=== PATIENT | male | born 1940 | race Caucasian/White ===

== ENCOUNTER 2023-09-20 13:10 | Inpatient (IN) | payer OTHER ==
[~2023-09-20] VITALS: Ht 160 cm; Wt 71.7 kg
[2023-09-20 13:14] VITALS: BP_SYST 122; PULSE 73; RESP 18; TEMP 98.3; O2SAT 98
[2023-09-20] MEDS ORDERED: NACL 0.9% 1,000 ML IV ONE (13:15)
[2023-09-20 14:21] LABS: BASOPHILS % (AUTO) 0.3 % (0.0-2.0); EOSINOPHILS # (AUTO) 0.1 K/uL (0.0-0.4); EOSINOPHILS % (AUTO) 1.4 % (0.0-4.0); HEMATOCRIT 42.7 % (36-54); HEMOGLOBIN 13.6 g/dL (14.0-18.0); LYMPHOCYTES # (AUTO) 1.2 K/uL (1.0-5.5); LYMPHOCYTES % (AUTO) 15.7 % (20.5-51.5); MEAN CORPUSCULAR HEMOGLOBIN 25 pg (27-31); MEAN CORPUSCULAR HGB CONC 32 % (32-36); MEAN CORPUSCULAR VOLUME 80 fL (79.0-98.0); MONOCYTES # (AUTO) 0.5 K/uL (0.0-1.0); MONOCYTES % (AUTO) 6.1 % (1.7-9.3); NEUTROPHILS # (AUTO) 5.9 K/uL (1.8-7.7); NEUTROPHILS % (AUTO) 76.5 % (40.0-70.0); PLATELET COUNT (AUTO) 241 K/uL (130-430); RED BLOOD CELL COUNT(AUTO) 5.34 MIL/uL (4.2-6.2); RED CELL DISTRIBUTION WIDTH 14.4 % (9.0-15.0); WHITE BLOOD COUNT (AUTO) 7.7 K/uL (4.8-10.8)
[2023-09-20 14:32] LABS: ANION GAP 9 (5-15); CALCIUM 11.2 mg/dL (8.4-11.0); CARBON DIOXIDE 29 mmol/L (23-29); CHLORIDE 105 mmol/L (98-107); CREATININE 1.05 mg/dL (0.55-1.30); GLUCOSE 227 mg/dL (74-106); POTASSIUM 3.8 mmol/L (3.5-5.1); SODIUM SERUM 143 mmol/L (136-145); UREA NITROGEN, BLOOD 27 mg/dL (8-21)
[2023-09-20 14:37] LABS: ALANINE AMINOTRANSFERASE 20 U/L (12-78); ALBUMIN 3.6 g/dL (3.4-4.8); ASPARTATE AMINOTRANSFERASE 17 U/L (10-37); LIPASE 48 U/L (16-77); TOTAL BILIRUBIN 0.4 mg/dL (0.0-1.0); TOTAL PROTEIN, SERUM 7.9 g/dL (6.4-8.3)
[2023-09-20] MEDS ORDERED: ACET325T39 PO (18:37)
[2023-09-20] MEDS ORDERED: MULT-74 PO (18:37)
[2023-09-20] MEDS ORDERED: INSU100V53 SQ ×2 (18:37)
[2023-09-20] MEDS ORDERED: ATOR20TA64 PO (18:37)
[2023-09-20] MEDS ORDERED: CLON0.1T PO (18:37)
[2023-09-20] MEDS ORDERED: INSU100V (18:37)
[2023-09-20] MEDS ORDERED: ACET-2634 PO (18:37)
[2023-09-20] MEDS ORDERED: FINA5TAB11 PO (18:37)
[2023-09-20] MEDS ORDERED: ASPI-859 PO (18:37)
[2023-09-20] MEDS ORDERED: HYDR-3919 PO (18:37)
[2023-09-20] MEDS ORDERED: DEXT15DR23 BOTH EYES (18:37)
[2023-09-20] MEDS ORDERED: MOM PO (18:47)
[2023-09-20] MEDS ORDERED: NA P230E PR (18:47)
[2023-09-20] MEDS ORDERED: DULR10 PR (18:47)
[2023-09-20 19:01] LABS: BILIRUBIN,URINE NEGATIVE (NEGATIVE); COLOR,URINE YELLOW (YELLOW); GLUCOSE,URINE 1+ (NEGATIVE); KETONES,URINE NEGATIVE (NEGATIVE); LEUKOCYTE ESTERASE ,URINE 1+ (NEGATIVE); NITRITE, URINE NEGATIVE (NEGATIVE); PROTEIN URINE NEGATIVE (NEGATIVE); UROBILINOGEN,URINE 0.2 (0.2-1.0)
[2023-09-20 19:09] LABS: BLOOD, URINE TRACE (NEGATIVE); CLARITY/URINE HAZY (CLEAR)
[2023-09-20 19:10] LABS: BACTERIA,URINE MODERATE /HPF (None Seen); MUCUS,URINE None Seen /LPF (None Seen); RBC,URINE 0-3 /HPF (0-3); URINE AMORPHOUS PHOSPHATES 2+ /HPF (None Seen)
[2023-09-20] MEDS ORDERED: MORPHINE 4 MG INJ. 4 MG/ML VIAL IVP PRN (22:00)
[2023-09-20] MEDS ORDERED: NALOXONE HCL 0.4 MG/ML AMP (NARCAN) IVP PRN (22:00)
[2023-09-20] MEDS ORDERED: ONDANSETRON HCL 4 MG/2 ML VIAL IVP PRN (22:00)
[2023-09-20] MEDS ORDERED: GLUCOSE (DEXTROSE) ORAL GEL -Adults PO PRN (22:00)
[2023-09-20] MEDS ORDERED: LORazepam 2 MG/ML VIAL IVP PRN (22:00)
[2023-09-20] MEDS ORDERED: D5W 1,000 ML IV PRN (22:00)
[2023-09-20] MEDS ORDERED: DEXTROSE 50% JECT 50 ML DISP.SYRIN IVP PRN (22:00)
[2023-09-20 22:15] VITALS: O2SAT 94
[2023-09-20] MEDS: D5/0.45 NS 1,000 ML IV SCH (23:07)
[2023-09-20 23:21] VITALS: BP_SYST 157; PULSE 77; RESP 18; TEMP 97.6
[2023-09-21] MEDS: D5/0.45 NS 1,000 ML IV SCH ×3 (03:45→22:36)
[2023-09-21 05:43] LABS: ANION GAP 9 (5-15); CALCIUM 10.7 mg/dL (8.4-11.0); CARBON DIOXIDE 30 mmol/L (23-29); CHLORIDE 108 mmol/L (98-107); CREATININE 0.97 mg/dL (0.55-1.30); GLUCOSE 252 mg/dL (74-106); POTASSIUM 3.8 mmol/L (3.5-5.1); SODIUM SERUM 147 mmol/L (136-145); UREA NITROGEN, BLOOD 22 mg/dL (8-21)
[2023-09-21 05:48] LABS: BASOPHILS % (AUTO) 0.3 % (0.0-2.0); EOSINOPHILS # (AUTO) 0.1 K/uL (0.0-0.4); EOSINOPHILS % (AUTO) 1.2 % (0.0-4.0); HEMATOCRIT 41.2 % (36-54); HEMOGLOBIN 12.9 g/dL (14.0-18.0); LYMPHOCYTES # (AUTO) 1.1 K/uL (1.0-5.5); LYMPHOCYTES % (AUTO) 12.1 % (20.5-51.5); MEAN CORPUSCULAR HEMOGLOBIN 25 pg (27-31); MEAN CORPUSCULAR HGB CONC 31 % (32-36); MEAN CORPUSCULAR VOLUME 81 fL (79.0-98.0); MONOCYTES # (AUTO) 0.6 K/uL (0.0-1.0); MONOCYTES % (AUTO) 6.8 % (1.7-9.3); NEUTROPHILS # (AUTO) 6.9 K/uL (1.8-7.7); NEUTROPHILS % (AUTO) 79.6 % (40.0-70.0); PLATELET COUNT (AUTO) 225 K/uL (130-430); RED BLOOD CELL COUNT(AUTO) 5.11 MIL/uL (4.2-6.2); RED CELL DISTRIBUTION WIDTH 14.7 % (9.0-15.0); WHITE BLOOD COUNT (AUTO) 8.7 K/uL (4.8-10.8)
[2023-09-21 08:00] VITALS: O2SAT 98
[2023-09-21 09:11] LABS: INR 1.1 (0.80-1.20); PROTHROMBIN TIME 11.7 SECS (9.5-12.5)
[2023-09-21 11:31] VITALS: BP_SYST 157; PULSE 85; RESP 15; TEMP 97.1; O2SAT 96
[2023-09-21] MEDS: INSULIN REGULAR, HUMAN 100 UNITS/ML, 3 ML VIAL (humuLIN R) SUBCUT PRN ×2 (13:46→22:47)
[2023-09-21 15:32] VITALS: BP_SYST 151; PULSE 72; RESP 16; TEMP 98.5; O2SAT 100
[2023-09-21 16:00] VITALS: BP_SYST 158; PULSE 84; RESP 20; TEMP 97.7; O2SAT 98
[2023-09-21 20:00] VITALS: BP_SYST 144; PULSE 86; RESP 18; TEMP 97.9; O2SAT 95
[2023-09-21] MEDS: PEG 400/HYPROMELLOSE/GLYCERIN 15 ML DROPS BOTH EYES SCH (22:36)
[2023-09-22] VITALS (9 sets, daily range): BP systolic 133–152; PULSE 73–93; RESP 16; TEMP 97.2–98; O2SAT 96–99
[2023-09-22 06:31] LABS: BASOPHILS % (AUTO) 0.2 % (0.0-2.0); EOSINOPHILS # (AUTO) 0.1 K/uL (0.0-0.4); EOSINOPHILS % (AUTO) 1.5 % (0.0-4.0); HEMATOCRIT 39.8 % (36-54); HEMOGLOBIN 12.6 g/dL (14.0-18.0); LYMPHOCYTES # (AUTO) 1.1 K/uL (1.0-5.5); LYMPHOCYTES % (AUTO) 13.8 % (20.5-51.5); MEAN CORPUSCULAR HEMOGLOBIN 25 pg (27-31); MEAN CORPUSCULAR HGB CONC 32 % (32-36); MEAN CORPUSCULAR VOLUME 80 fL (79.0-98.0); MONOCYTES # (AUTO) 0.4 K/uL (0.0-1.0); MONOCYTES % (AUTO) 5.4 % (1.7-9.3); NEUTROPHILS # (AUTO) 6.3 K/uL (1.8-7.7); NEUTROPHILS % (AUTO) 79.1 % (40.0-70.0); PLATELET COUNT (AUTO) 206 K/uL (130-430); RED BLOOD CELL COUNT(AUTO) 4.97 MIL/uL (4.2-6.2); RED CELL DISTRIBUTION WIDTH 14.7 % (9.0-15.0); WHITE BLOOD COUNT (AUTO) 7.9 K/uL (4.8-10.8)
[2023-09-22] MEDS: INSULIN REGULAR, HUMAN 100 UNITS/ML, 3 ML VIAL (humuLIN R) SUBCUT PRN ×2 (06:52→12:01)
[2023-09-22 06:56] LABS: ANION GAP 11 (5-15); CALCIUM 10.5 mg/dL (8.4-11.0); CARBON DIOXIDE 28 mmol/L (23-29); CHLORIDE 104 mmol/L (98-107); CREATININE 0.87 mg/dL (0.55-1.30); GLUCOSE 168 mg/dL (74-106); PHOSPHORUS 2.6 mg/dL (2.7-4.5); POTASSIUM 3.7 mmol/L (3.5-5.1); SODIUM SERUM 143 mmol/L (136-145); UREA NITROGEN, BLOOD 15 mg/dL (8-21)
[2023-09-22 07:27] LABS: ALBUMIN 3.3 g/dL (3.4-4.8); BILIRUBIN,DIRECT 0.1 mg/dL (0.0-0.3); TOTAL BILIRUBIN 0.5 mg/dL (0.0-1.0); TOTAL PROTEIN, SERUM 7.3 g/dL (6.4-8.3)
[2023-09-22] MEDS: D5/0.45 NS 1,000 ML IV SCH ×2 (09:45→21:01)
[2023-09-22] MEDS ORDERED: NA PHOS 15 MM in NS 250 ML IV ONE (12:00)
[2023-09-22] MEDS: MORPHINE 2 MG/ML INJ. SYRINGE IVP PRN (14:13)
[2023-09-22] MEDS: LEVOFLOXACIN 250 MG/D5W 50 ML IV SCH (14:56)
[2023-09-22] MEDS: PEG 400/HYPROMELLOSE/GLYCERIN 15 ML DROPS BOTH EYES SCH (21:01)
[2023-09-23 00:20] VITALS: BP_SYST 151; PULSE 79; RESP 19; TEMP 98.1; O2SAT 98
[2023-09-23] MEDS: D5/0.45 NS 1,000 ML IV SCH ×2 (00:39→10:53)
[2023-09-23 05:44] LABS: BASOPHILS % (AUTO) 0.2 % (0.0-2.0); EOSINOPHILS # (AUTO) 0.1 K/uL (0.0-0.4); EOSINOPHILS % (AUTO) 1.7 % (0.0-4.0); HEMATOCRIT 38.4 % (36-54); HEMOGLOBIN 12.3 g/dL (14.0-18.0); LYMPHOCYTES # (AUTO) 1.1 K/uL (1.0-5.5); LYMPHOCYTES % (AUTO) 14.3 % (20.5-51.5); MEAN CORPUSCULAR HEMOGLOBIN 25 pg (27-31); MEAN CORPUSCULAR HGB CONC 32 % (32-36); MEAN CORPUSCULAR VOLUME 79 fL (79.0-98.0); MONOCYTES # (AUTO) 0.5 K/uL (0.0-1.0); NEUTROPHILS # (AUTO) 5.8 K/uL (1.8-7.7); NEUTROPHILS % (AUTO) 76.8 % (40.0-70.0); PLATELET COUNT (AUTO) 190 K/uL (130-430); RED BLOOD CELL COUNT(AUTO) 4.88 MIL/uL (4.2-6.2); RED CELL DISTRIBUTION WIDTH 14.3 % (9.0-15.0); WHITE BLOOD COUNT (AUTO) 7.5 K/uL (4.8-10.8)
[2023-09-23] MEDS: INSULIN REGULAR, HUMAN 100 UNITS/ML, 3 ML VIAL (humuLIN R) SUBCUT PRN ×2 (06:04→11:36)
[2023-09-23 06:05] LABS: ERYTHROCYTE SEDIMENTATION RATE 52 MM/HR (0-15)
[2023-09-23 06:30] LABS: ALANINE AMINOTRANSFERASE 17 U/L (12-78); ALBUMIN 3.1 g/dL (3.4-4.8); ANION GAP 10 (5-15); ASPARTATE AMINOTRANSFERASE 17 U/L (10-37); CALCIUM 10.1 mg/dL (8.4-11.0); CARBON DIOXIDE 27 mmol/L (23-29); CHLORIDE 101 mmol/L (98-107); CREATININE 0.95 mg/dL (0.55-1.30); GLUCOSE 207 mg/dL (74-106); POTASSIUM 3.4 mmol/L (3.5-5.1); SODIUM SERUM 138 mmol/L (136-145); TOTAL BILIRUBIN 0.5 mg/dL (0.0-1.0); TOTAL PROTEIN, SERUM 6.9 g/dL (6.4-8.3); UREA NITROGEN, BLOOD 12 mg/dL (8-21)
[2023-09-23] MEDS ORDERED: VANCOMYCIN HCL 1 GM/NS PREMIX 250 ML IV ONE (07:30)
[2023-09-23 08:00] VITALS: BP_SYST 141; PULSE 70; RESP 18; TEMP 96.8; O2SAT 99
[2023-09-23 11:28] VITALS: BP_SYST 149; PULSE 68; RESP 16; TEMP 98.1; O2SAT 93
[2023-09-23 11:30] VITALS: O2SAT 96
[2023-09-23] MEDS: LEVOFLOXACIN 250 MG/D5W 50 ML IV SCH (13:40)
[2023-09-23 15:24] VITALS: BP_SYST 152; PULSE 60; RESP 16; TEMP 98.1; O2SAT 96
[2023-09-23 19:50] VITALS: BP_SYST 150; PULSE 74; RESP 16; TEMP 97.8; O2SAT 96
[2023-09-23] MEDS: PEG 400/HYPROMELLOSE/GLYCERIN 15 ML DROPS BOTH EYES SCH (21:28)
[2023-09-23] MEDS: CIPROFLOXACIN HCL 0.3% EYE DRP 2.5 ML DROPS RIGHT EYE SCH (21:28)
[2023-09-24] MEDS: INSULIN REGULAR, HUMAN 100 UNITS/ML, 3 ML VIAL (humuLIN R) SUBCUT PRN ×2 (01:06→23:46)
[2023-09-24 01:11] VITALS: BP_SYST 127; PULSE 85; RESP 20; TEMP 97.6; O2SAT 98
[2023-09-24 05:07] LABS: BASOPHILS % (AUTO) 0.2 % (0.0-2.0); EOSINOPHILS # (AUTO) 0.1 K/uL (0.0-0.4); EOSINOPHILS % (AUTO) 1.4 % (0.0-4.0); HEMATOCRIT 38.5 % (36-54); HEMOGLOBIN 12.5 g/dL (14.0-18.0); LYMPHOCYTES # (AUTO) 0.9 K/uL (1.0-5.5); MEAN CORPUSCULAR HEMOGLOBIN 25 pg (27-31); MEAN CORPUSCULAR HGB CONC 32 % (32-36); MEAN CORPUSCULAR VOLUME 78 fL (79.0-98.0); MONOCYTES # (AUTO) 0.6 K/uL (0.0-1.0); MONOCYTES % (AUTO) 7.7 % (1.7-9.3); NEUTROPHILS # (AUTO) 5.6 K/uL (1.8-7.7); NEUTROPHILS % (AUTO) 77.7 % (40.0-70.0); PLATELET COUNT (AUTO) 181 K/uL (130-430); RED BLOOD CELL COUNT(AUTO) 4.95 MIL/uL (4.2-6.2); RED CELL DISTRIBUTION WIDTH 14.3 % (9.0-15.0); WHITE BLOOD COUNT (AUTO) 7.2 K/uL (4.8-10.8)
[2023-09-24 05:26] LABS: INR 1.2 (0.80-1.20); PROTHROMBIN TIME 12.3 SECS (9.5-12.5)
[2023-09-24 05:27] LABS: ERYTHROCYTE SEDIMENTATION RATE 52 MM/HR (0-15)
[2023-09-24 05:36] LABS: ANION GAP 10 (5-15); CALCIUM 10.1 mg/dL (8.4-11.0); CARBON DIOXIDE 27 mmol/L (23-29); CHLORIDE 101 mmol/L (98-107); CREATININE 0.85 mg/dL (0.55-1.30); GLUCOSE 146 mg/dL (74-106); POTASSIUM 3.3 mmol/L (3.5-5.1); SODIUM SERUM 138 mmol/L (136-145); UREA NITROGEN, BLOOD 9 mg/dL (8-21)
[2023-09-24] MEDS: D5/0.45 NS 1,000 ML IV SCH ×3 (05:39→21:24)
[2023-09-24 07:35] VITALS: BP_SYST 148; PULSE 75; RESP 16; TEMP 97.7; O2SAT 98
[2023-09-24] MEDS ORDERED: MIDAZOLAM HCL 5 MG/5 ML VIAL ONE (07:54)
[2023-09-24] MEDS ORDERED: fentaNYL CITRATE/PF 100 MCG/2 ML AMP ONE (07:54)
[2023-09-24] MEDS: CIPROFLOXACIN HCL 0.3% EYE DRP 2.5 ML DROPS RIGHT EYE SCH ×2 (08:19→21:24)
[2023-09-24 11:31] VITALS: BP_SYST 151; PULSE 73; RESP 16; TEMP 97.5; O2SAT 96
[2023-09-24] MEDS ORDERED: POTASSIUM CHLORIDE 40 MEQ, LIDOCAINE JECT 2% PF 100 MG 50 MG in NS 250 ML IV ONE (13:00)
[2023-09-24] MEDS: LEVOFLOXACIN 250 MG/D5W 50 ML IV SCH (13:00)
[2023-09-24] MEDS: MORPHINE 2 MG/ML INJ. SYRINGE IVP PRN (13:24)
[2023-09-24 15:06] VITALS: BP_SYST 140; PULSE 89; RESP 15; TEMP 97.7; O2SAT 93
[2023-09-24 20:00] VITALS: BP_SYST 125; PULSE 80; RESP 18; TEMP 99; O2SAT 98
[2023-09-24] MEDS: PEG 400/HYPROMELLOSE/GLYCERIN 15 ML DROPS BOTH EYES SCH (21:23)
[2023-09-25 00:52] VITALS: BP_SYST 146; PULSE 93; RESP 17; TEMP 96.5; O2SAT 98
[2023-09-25 05:09] LABS: ERYTHROCYTE SEDIMENTATION RATE 47 MM/HR (0-15)
[2023-09-25 05:18] LABS: BASOPHILS % (AUTO) 0.3 % (0.0-2.0); EOSINOPHILS # (AUTO) 0.1 K/uL (0.0-0.4); EOSINOPHILS % (AUTO) 1.4 % (0.0-4.0); HEMATOCRIT 38.3 % (36-54); HEMOGLOBIN 12.4 g/dL (14.0-18.0); LYMPHOCYTES % (AUTO) 12.7 % (20.5-51.5); MEAN CORPUSCULAR HEMOGLOBIN 25 pg (27-31); MEAN CORPUSCULAR HGB CONC 32 % (32-36); MEAN CORPUSCULAR VOLUME 78 fL (79.0-98.0); MONOCYTES # (AUTO) 0.7 K/uL (0.0-1.0); MONOCYTES % (AUTO) 9.1 % (1.7-9.3); NEUTROPHILS # (AUTO) 5.7 K/uL (1.8-7.7); NEUTROPHILS % (AUTO) 76.5 % (40.0-70.0); PLATELET COUNT (AUTO) 185 K/uL (130-430); RED BLOOD CELL COUNT(AUTO) 4.91 MIL/uL (4.2-6.2); RED CELL DISTRIBUTION WIDTH 14.8 % (9.0-15.0); WHITE BLOOD COUNT (AUTO) 7.5 K/uL (4.8-10.8)
[2023-09-25] MEDS: INSULIN REGULAR, HUMAN 100 UNITS/ML, 3 ML VIAL (humuLIN R) SUBCUT PRN ×2 (05:43→11:30)
[2023-09-25 05:48] LABS: ANION GAP 8 (5-15); CALCIUM 9.9 mg/dL (8.4-11.0); CARBON DIOXIDE 26 mmol/L (23-29); CHLORIDE 99 mmol/L (98-107); GLUCOSE 205 mg/dL (74-106); POTASSIUM 3.5 mmol/L (3.5-5.1); SODIUM SERUM 133 mmol/L (136-145); UREA NITROGEN, BLOOD 8 mg/dL (8-21)
[2023-09-25] MEDS: CIPROFLOXACIN HCL 0.3% EYE DRP 2.5 ML DROPS RIGHT EYE SCH (08:35)
[2023-09-25] MEDS: D5/0.45 NS 1,000 ML IV SCH (11:22)
[2023-09-25 11:24] VITALS: BP_SYST 131; PULSE 74; RESP 16; TEMP 98.1; O2SAT 95
[2023-09-25 12:38] VITALS: BP_SYST 142; PULSE 88; RESP 18; TEMP 98.2; O2SAT 97
[2023-09-25 12:45] VITALS: BP_SYST 142; PULSE 88; RESP 18; TEMP 98.2
== END 2023-09-25 14:25 | DRG 146 ==
LOC: SED 13:10 → SMU 17:44
PROVIDERS: ADMIT Preventive Medicine Preventive Medicine/Occupational Environmental Medicine; ATTEND Preventive Medicine Preventive Medicine/Occupational Environmental Medicine
PROC: 0DH63UZ Insertion of Feeding Device into Stomach, Percutaneous Approach (ICD-10-PCS; principal; 2023-09-24 10:15)
DX: C76.0 Malignant neoplasm of head, face and neck (principal); G93.41 Metabolic encephalopathy; L03.211 Cellulitis of face; N39.0 Urinary tract infection, site not specified; E87.1 Hypo-osmolality and hyponatremia; E86.0 Dehydration; R13.10 Dysphagia, unspecified; E83.52 Hypercalcemia; R73.9 Hyperglycemia, unspecified; M47.812 Spondylosis without myelopathy or radiculopathy, cervical region; E87.6 Hypokalemia; D64.9 Anemia, unspecified; E88.09 Other disorders of plasma-protein metabolism, not elsewhere classified; Z88.0 Allergy status to penicillin; Z88.8 Allergy status to other drugs, medicaments and biological substances; Z85.89 Personal history of malignant neoplasm of other organs and systems; Z85.819 Personal history of malignant neoplasm of unspecified site of lip, oral cavity, and pharynx; Z79.899 Other long term (current) drug therapy; Z79.82 Long term (current) use of aspirin
CPT/HCPCS: 36415; 43239; 70450-TC; 70491-TC; 76376; 80048; 80053; 80076; 81000; 81001; 81015; 82962; 82977; 83605; 83690; 83970; 84100; 85025; 85610-TC; 85651-TC; 87040; 87081; 87086; 88305; 88312; 88313; 92610-GN; 96360; 97110-GP; 97112-GP; 97116-GP; 97530-GP; 99285; J1815; J1956; J2250; J2270; J3010; J3370; J3480; J7050